=== PATIENT | female | born 1990 | race Caucasian/White ===

== ENCOUNTER 2022-04-28 20:07 | Emergency (ER) | payer OTHER ==
[~2022-04-28] VITALS: Ht 162.6 cm; Wt 65.8 kg
[2022-04-28] MEDS ORDERED: ONDANSETRON ODT4 MG PO (23:41)
== END 2022-04-29 00:06 | disposition home or self-care (01) ==
LOC: ED 20:07
DX: O21.9 Vomiting of pregnancy, unspecified (principal); Z3A.19 19 weeks gestation of pregnancy
CPT/HCPCS: 36415; 80053; 81001; 83690; 85025; 96361; 96374; 96375; 99284-25; A9270; J2405; J7121